=== PATIENT | male | born 1995 | race Two or more races ===

== ENCOUNTER 2024-12-21 16:27 | Outpatient (CLI) | payer MEDICAID ==
--- NOTE | 2024-12-21 18:57 | RADIOLOGY REPORT ---
EXAM: MR MRI LOWER EXTREMITY RIGHT INDICATION: ANESTHESIA OF SKIN TECHNIQUE: Multiplanar, multisequence imaging of the bilateral lower extremities /thighs without contrast COMPARISON: None FINDINGS: BONES: No MR evidence of an acute fracture, osseous contusion, or aggressive focal osseous lesion. Appearance of right-sided bipartite patella. MUSCLES: Normal signal intensity and morphology. TENDONS: Intact. LIGAMENTS: Intact. JOINT SPACES: No joint effusion. NEUROVASCULAR: Normal. In the area of palpable concern no discrete mass or abnormal edema. Consideration for meralgia paresthetica given the location of concern. OTHER: Small bilateral hydroceles. IMPRESSION: 1. In the area of palpable concern no discrete mass or abnormal edema. Consideration for meralgia paresthetica given the location of concern.
== END 2024-12-21 23:59 | disposition home or self-care (01) ==
LOC: MRI02 16:27
PROVIDERS: ATTEND Physician Assistant
DX: N43.3 Hydrocele, unspecified (principal); R20.0 Anesthesia of skin
CPT/HCPCS: 73718